=== PATIENT | female | born 1970 | race Caucasian/White ===

== ENCOUNTER 2019-10-16 08:46 | Emergency (ER) | payer MEDICAID ==
[~2019-10-16] VITALS: Ht 167.6 cm; Wt 104.0 kg
[2019-10-16 10:45] VITALS: BP 135/82
== END 2019-10-16 11:12 | disposition home or self-care (01) ==
LOC: EMS 08:51
DX: Z11.59 Encounter for screening for other viral diseases (principal); Z20.828 Contact with and (suspected) exposure to other viral communicable diseases